=== PATIENT | female | born 1975 | race Two or more races ===

== ENCOUNTER 2020-06-20 11:35 | Emergency (ER) | payer MEDICAID ==
[~2020-06-20] VITALS: Ht 162.6 cm; Wt 78.0 kg
[2020-06-20 11:51] VITALS: BP 143/95
--- NOTE | 2020-06-20 11:51 | NUR ---
ED Nurse Note: Pt. AAOx4. ambulatory edema to left upper eyelid that started yest with a small brad/possible bite. itching and reddened with the edema.
--- NOTE | 2020-06-20 12:06 | Emergency Room Report ---
History of Present Illness General Chief Complaint: Eye Problems Source: Patient Present Illness HPI 44-year-old female with no significant past medical history here complaining of swelling and itchiness in left eye. Patient does not know whether she got bit by an insect or not. Denies any eye discharge, blurred vision, pain. Denies any photophobia, headache and dizziness. Has not taken medication for symptom relief. Denies any trauma to the eye. Sitting comfortably with stable signs. 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 Patient History Past Medical History: see triage record Past Surgical History: none Pertinent Family History: none Last Menstrual Period: 2 weeks Now: No Immunizations: UTD Reviewed Nursing Documentation: PMH: Agreed; PSxH: Agreed Nursing Documentation-PMH Past Medical History: No History, Except For Hx Hypertension: Yes Review of Systems All Other Systems: negative except mentioned in HPI Physical Exam Vital Signs Date Time Temp Pulse Resp B/P (MAP) Pulse Ox O2 Delivery O2 Flow Rate FiO2 06/20/20 11:51 98.2 84 20 143/95 (111) 97 Room Air Sp02 EP Interpretation: reviewed, normal General Appearance: no apparent distress, alert, GCS 15, non-toxic Head: normocephalic, atraumatic Eyes: left eye other - Periorbital cellulitis; bilateral eye normal inspection, bilateral eye PERRL ENT: hearing grossly normal, normal pharynx, no angioedema, normal voice Neck: full range of motion, supple/symm/no masses Respiratory: chest non-tender, lungs clear, normal breath sounds, speaking full sentences Cardiovascular #1: regular rate, rhythm, no edema Gastrointestinal: normal bowel sounds, non tender, soft, non-distended, no guarding, no rebound Genitourinary: no CVA tenderness Neurologic: alert, motor strength/tone normal, oriented x3, sensory intact, r esponsive, speech normal Psychiatric: judgement/insight normal, memory normal, mood/affect normal, no suicidal/homicidal ideation Skin: no rash Lymphatic: no adenopathy Medical Decision Making PA Attestation All my diagnosis and treatment plans were reviewed ad discussed with [facility] Dr. Villatoro Diagnostic Impression: Primary Impression: Cellulitis of eyelid ER Course 44-year-old female with no significant past medical history here complaining of swelling and itchiness in left eye. Patient does not know whether she got bit by an insect or not. Denies any eye discharge, blurred vision, pain. Denies any photophobia, headache and dizziness. Has not taken medication for symptom relief. Denies any trauma to the eye. Sitting comfortably with stable signs. Ddx considered but are not limited to: bacterial conjunctivitis, allergic conjunctivitis, viral conjunctivitis, periorbital cellulitis, global trauma Vital signs: are WNL, pt. is afebrile H&PE are most consistent with: Cellulitis of bilateral ORDERS: Prednisone, Augmentin, Zaditor ophthalmic ED INTERVENTIONS: None required at this time. DISCHARGE: At this time pt. is stable for d/c to home. Will provide printed patient care instructions, and any necessary prescriptions. Care plan and follow up instructions have been discussed with the patient prior to discharge. Patient take medication as directed, follow-up primary care provider, if worsening symptom return to the emergency room Last Vital Signs Date Time Temp Pulse Resp B/P (MAP) Pulse Ox O2 Delivery O2 Flow Rate FiO2 06/20/20 11:51 98.2 84 20 143/95 (111) 97 Room Air Disposition: HOME, SELF-CARE Condition: Stable Scripts Ketotifen Fumarate (ZADITOR) 5 Ml Drops 1 DROP LEFT EYE BID for 10 Days, #5 ML 0 Refills Prov: Ni Schmidt 06/20/20 Prednisone* (PREDNISONE*) 20 Mg Tablet 40 MG ORAL DAILY for 3 Days, #6 TAB Prov: Ni Schmidt 06/20/20 Amoxicillin/Potassium Clav 875-125* (AUGMENTIN 875-125 TABLET*) 1 Each Tablet 1 TAB ORAL TWICE A DAY for 7 Days, #14 TAB Prov: Ni Schmidt 06/20/20 Patient Instructions: Cellulitis, [id number] Additional Instructions: Take medication as directed, avoid straining your eyes, follow primary care provider and lock technician, if worsening symptoms return to the emergency room Ni Schmidt Jun 20, 2020 12:06
[2020-06-20] MEDS ORDERED: PREDNISONE20 MG ORAL (12:08)
[2020-06-20] MEDS ORDERED: AUGMENTIN 875-1 EAC1 ORAL (12:08)
[2020-06-20] MEDS ORDERED: ZADITOR5 ML LEFT EYE (12:08)
[2020-06-20 12:17] VITALS: BP 138/78
--- NOTE | 2020-06-20 12:17 | NUR ---
ER DISCHARGE NOTE: Patient is cleared to be discharged per ERMD, pt is aox4, on room air, with stable vital signs. pt was given dc and prescription instructions, pt was able to verbalize understanding, pt id band removed. pt is able to ambulate with steady gait. pt took all belongings.
== END 2020-06-20 12:17 | disposition home or self-care (01) ==
LOC: EMR 12:05
DX: H00.036 Abscess of eyelid left eye, unspecified eyelid (principal); I10 Essential (primary) hypertension; Z91.013 Allergy to seafood
CPT/HCPCS: 99282